=== PATIENT | male | born 1965 | race Two or more races ===

== ENCOUNTER → 2024-08-06 18:31 | Outpatient (REF) | payer BC, SELFPAY | LOC: MRI 3T 18:31 | PROVIDERS: ATTENDING PHYSICIAN Neurological Surgery | DX: D33.3 Benign neoplasm of cranial nerves (principal) | CPT/HCPCS: 70553; A9575 ==

== ENCOUNTER 2024-12-30 12:53 | Emergency (ER) | payer BC, SELFPAY ==
[2024-12-30 12:55] VITALS: BP 144/108
--- NOTE | 2024-12-30 13:51 | ED.GENMED ---
History of Present Illness
General
Chief Complaint: Nose Bleed
Source: patient
Exam Limitations: none
Time Seen by Provider: 12/30/24 13:37
History of Present Illness
History of Present Illness:
See MDM
Past History
Past History
ED Past Medical History: None
ED Past Surgical History: None
Social History
Tobacco: Non-smoker
Alcohol: None
Phy Exam
Physical Exam
Physical Exam:
See MDM
Course
Vital Signs
Initial and Last Documented VS:
Initial Vital Signs
Temp Pulse Resp BP Pulse Ox
98.2 F 91 19 144/108 98
12/30/24 12:55 12/30/24 12:55 12/30/24 12:55 12/30/24 12:55 12/30/24 12:55
Last Documented Vital Signs
Temp Pulse Resp BP Pulse Ox
98.2 F 91 19 144/108 98
12/30/24 12:55 12/30/24 12:55 12/30/24 12:55 12/30/24 12:55 12/30/24 13:52
Procedures
Nosebleed
Drug treatment: none
Treatment: Silver nitrate cautery
Post treatment bleeding: none- good control and continue to observe
Additional information:
Small amount of silver nitrate applied to right medial nasal mucosa
MDM/Problems Addressed
Differential Diagnosis Includes:
Note:
CHIEF COMPLAINT(S)
Epistaxis (nosebleed).
HISTORY OF PRESENT ILLNESS
The patient is a 59-year-old male who presented with a nosebleed that began approximately 40 minutes prior to the evaluation. The bleeding started spontaneously while the patient was blowing his nose and primarily affects the right nostril. The
patient denies any previous occurrences of similar episodes. Current weather conditions are noted to be dry, which might contribute to the condition by drying out the nasal mucosa. The patient is not on any blood-thinning medications. The patient
was advised to blow his nose to remove the clot, so the source of bleeding could be identified.
PHYSICAL EXAM
General: Alert, no acute distress.
Skin: Warm, dry.
Head: Normocephalic, atraumatic
Neck: Appears supple, trachea midline.
Eyes, Ears, Nose, Mouth, and Throat: Active bleeding to right nasal septum
Cardiovascular: No signs of cyanosis
Respiratory: Respirations are non-labored.
Abdomen: Non-distended
Musculoskeletal: No deformities
Neurological: No focal neurological deficit observed.
Psychiatric: Cooperative, appropriate mood and affect.
PLAN
- Observation of the patient following the application of silver nitrate.
- Consideration of a more aggressive application of silver nitrate if necessary.
- The patient was informed about the procedure and advised to maintain his head in a slightly elevated position.
DIFFERENTIAL DIAGNOSIS
The Differential Diagnosis includes, in no particular order and is not limited to:
- Anterior epistaxis
- Posterior epistaxis
- Hypertension-related epistaxis
- Coagulopathy (ruled out due to lack of anticoagulant use)
- Trauma-induced epistaxis
- Nasal dryness due to environmental factors
SUMMARY OF ENCOUNTER
The patient presented to the emergency department with a nosebleed primarily affecting the right nostril, occurring for 40 minutes. After initial examination and conversation regarding the bleeding type and probable causes, the decision to apply
silver nitrate for anterior bleeding was made. The patient was observed post-procedure with the possibility of applying more silver nitrate if required.
DISPOSITION
Observation.
ASSESSMENT
Anterior epistaxis likely related to nasal dryness and environmental factors.
MEDICAL DECISION MAKING
- Complexity of Data Reviewed: Chronic conditions affecting care were not specifically noted, but differential diagnosis considerations included anterior and posterior epistaxis, hypertension, trauma, and environmental factors.
- Data:
Category 1:
- My independent interpretation considered the application of silver nitrate following the identification of the bleeding source.
- Risk:
- Prescription medication management was not indicated as the treatment was procedural.
DIAGNOSIS
- Anterior epistaxis (ICD-10: R04.0)
*Pulse Oximetry
SaO2: 98
Oxygen Mode of Delivery: Room air
Patient hypoxic: no
*Critical Care Note
Total Time (30-74mins, 75-104mins- exclusive of procedures): Not Applicable
ED Attending Note
-
Portions of this chart may have been created with voice recognition software.� Occasional wrong word or��sound alike� substitutions may have occurred due to the inherent limitations of voice recognition software.
Discharge Plan
Departure
Patient Disposition: Home (Routine Discharge)
Date of Disposition: 12/30/24
Time of Disposition: 14:14
Patient with high blood pressure during this ER visit?: Yes
Discharge Problem:
Acute anterior epistaxis
Instructions: Nosebleeds (DC), BLOOD PRESSURE
Referrals:
Dana Paz MD [Family Provider, Family Practice]
Activity Restrictions/Additional Instructions:
Please return for any worsening symptoms.
You may return at any time if you have further concerns.
Please follow up with your doctor at the first available appointment, preferably this week.
Thank you for choosing [facility].
Interventions
Interventions:
*Risk Screen - Suicide Last Done: 12/30/24 12:55
*General Assessment Last Done: 12/30/24 12:55
*Neglect/Abuse Screening Last Done: 12/30/24 12:55
Discharge Date and Time
Print Language: [place]
== END 2024-12-30 14:45 | disposition home or self-care (01) ==
LOC: EMR 12:53
PROVIDERS: EMERGENCY PHYSICIAN Student in an Organized Health Care Education/Training Program; FAMILY PHYSICIAN Family Medicine
DX: R04.0 Epistaxis (principal)
CPT/HCPCS: 99282; 30901